=== PATIENT | female | born 2000 | race Caucasian/White ===

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

== ENCOUNTER 2020-05-29 02:27 | Emergency (ER) | payer OTHER ==
[~2020-05-29] VITALS: Ht 160 cm; Wt 86.9 kg
[2020-05-29] MEDS ORDERED: LEVO50TA5 (02:41)
[2020-05-29] MEDS ORDERED: LAMO25TA4 (02:41)
[2020-05-29] MEDS ORDERED: NORG1TAB37 (02:41)
[2020-05-29] MEDS ORDERED: LEXA1TAB (02:41)
[2020-05-29] MEDS ORDERED: LORazepam 1 MG TAB PO ONE (03:30)
[2020-05-29 04:19] VITALS: BP 103/67
== END 2020-05-29 04:36 | disposition home or self-care (01) ==
LOC: M ED 02:27
DX: T40.991A Poisoning by other psychodysleptics [hallucinogens], accidental (unintentional), initial encounter (principal); F41.9 Anxiety disorder, unspecified; F32.9 Major depressive disorder, single episode, unspecified; Z91.14 Patient's other noncompliance with medication regimen; Z91.010 Allergy to peanuts